=== PATIENT | female | born 1980 | race African-American/Black ===

== ENCOUNTER 2017-06-30 23:42 | Observation (INO) | payer MEDICARE ==
[2017-07-01 00:34] VITALS: BMI 31.4
[2017-07-01 00:48] LABS: URINE APPEARANCE CLEAR; URINE BILIRUBIN NEGATIVE (NEGATIVE); URINE BLOOD NEGATIVE (NEGATIVE); URINE COLOR LTYELLOW; URINE GLUCOSE (UA) NEGATIVE (NEGATIVE); URINE KETONE NEGATIVE (NEGATIVE); URINE LEUK ESTERASE TRACE (NEGATIVE); URINE NITRITE NEGATIVE (NEGATIVE); URINE PROTEIN NEGATIVE (NEGATIVE); URINE UROBILINOGEN 4.0 E.U/dl mg/dL (0.2-1.0)
[2017-07-01 00:49] LABS: HCG,QUALITATIVE URINE NEGATIVE
[2017-07-01 00:51] LABS: EPI CELLS RARE /HPF (FEW); URINE MUCUS RARE
[2017-07-01 01:01] LABS: BASO % 0.2 % (0-2.0); EOS % 0.4 % (0-4.5); MCHC 29.8 g/dl (32.0-36.0); MEAN CELL VOLUME 62.7 fl (80-96); MEAN PLT VOLUME 8.7 fl (7.5-11.1); MONO % 9.2 % (3.8-10.2); NEUT % 71.2 % (42.8-82.8); PLATELET COUNT 241 K/MM3 (134-434); RBC 3.18 M/mm3 (3.60-5.2); RDW 20.3 % (11.6-15.6); WHITE BLOOD COUNT 9.2 K/mm3 (4.0-10.0)
[2017-07-01 01:06] LABS: MCH 18.7 pg (25.7-33.7)
[2017-07-01 01:09] LABS: HEMOGLOBIN 5.9 GM/dL (10.7-15.3)
[2017-07-01 01:10] LABS: HEMATOCRIT 19.9 % (32.4-45.2)
[2017-07-01 01:25] LABS: ALBUMIN 3.2 g/dl (3.4-5.0); ANION GAP 11 (8-16); BILIRUBIN,TOTAL 0.4 mg/dL (0.2-1.0); BLOOD UREA NITROGEN 7 mg/dL (7-18); CALCIUM 8.3 mg/dL (8.5-10.1); CHLORIDE 106 mmol/L (98-107); CO2 23 mmol/L (21-32); CREATININE 0.8 mg/dL (0.55-1.02); GLUCOSE,RANDOM 101 mg/dL (74-106); POTASSIUM 3.4 mmol/L (3.5-5.1); SGOT/AST 12 U/L (15-37); SGPT/ALT 11 U/L (12-78); SODIUM 140 mmol/L (136-145); TOT PROT 7.2 g/dl (6.4-8.2)
[2017-07-01 01:26] LABS: ALK PHOS 58 U/L (45-117)
--- NOTE | 2017-07-01 01:27 | PDOC ---
History of Present Illness - General Chief Complaint: Urinary Problem Stated Complaint: ABD PAIN Time Seen by Provider: 07/01/17 00:26 - History of Present Illness Initial Comments: 07/01/17 01:22 "The patient is a 37 year old female with no significant PMH of who presents to the emergency department with lower abdominal pain since yesterday. The patient describes the lower abdominal pain as sharp and worse with movement. The patient notes her lower abdominal pain is exacerbated prior to urinating. The patient states she also had clear discharge yesterday but did not notice any associated odor, itchiness or rashes. The patient denies any history of UTIs. The patient states she is sexually active. LMP was on 06/16/17. Pt reports that she has very heavy periods, soaking through 1 pad every hour for the first 3 days. Endorses lightheaded when she exerts herself. Denies CP/ SOB. Also endorses cravings for ice chips. The patient denies chest pain, shortness of breath, headache and dizziness. Denies chills, nausea, vomit, diarrhea and constipation. Denies dysuria, frequency, urgency and hematuria. Denies BRBPR or dark tarry stools. Allergies: NKA Past surgical history: , tubal ligation Social history: No reported alcohol, drug or cigarette use. Past History - Past Medical History Allergies/Adverse Reactions: Allergies Allergy/AdvReac Type Severity Reaction Status Date / Time shellfish derived Allergy Verified 07/01/17 00:20 - Suicide/Smoking/Psychosocial Hx Smoking History: Never smoked Have you smoked in the past 12 months: No Information on smoking cessation initiated: No Hx Alcohol Use: No Drug/Substance Use Hx: No Review of Systems - Review of Systems Comments:: 07/01/17 01:24 "GENERAL/CONSTITUTIONAL: No fever or chills. + lightheadedness HEAD, EYES, EARS, NOSE AND THROAT: No change in vision. No ear pain or discharge. No sore throat. CARDIOVASCULAR: No chest pain or shortness of breath. RESPIRATORY: No cough, wheezing, or hemoptysis. GASTROINTESTINAL: + lower abdominal pain. No nausea, vomiting, diarrhea or constipation. GENITOURINARY: No dysuria, frequency, or change in urination. MUSCULOSKELETAL: No joint or muscle swelling or pain. No neck or back pain. SKIN: No rash NEUROLOGIC: No headache, vertigo, loss of consciousness, or change in strength/ sensation. ENDOCRINE: No increased thirst. No abnormal weight change. HEMATOLOGIC/LYMPHATIC: No anemia, easy bleeding, or history of blood clots. ALLERGIC/IMMUNOLOGIC: No hives or skin allergy." *Physical Exam - Vital Signs Last Vital Signs Temp Pulse Resp BP Pulse Ox 97.8 F 88 16 138/80 100 07/01/17 00:18 07/01/17 00:18 07/01/17 00:18 07/01/17 00:18 07/01/17 00:18 - Physical Exam Comments: 07/01/17 01:24 "GENERAL: Awake, alert, and fully oriented, in no acute distress HEAD: No signs of trauma EYES: PERRLA, EOMI, sclera anicteric, conjunctiva clear ENT: Auricles normal inspection, hearing grossly normal, nares patent, oropharynx clear without exudates. Moist mucosa NECK: Nontender, no stepoffs, Normal ROM, supple, no lymphadenopathy, JVD, or masses LUNGS: Breath sounds equal, clear to auscultation bilaterally. No wheezes, and no crackles HEART: Regular rate and rhythm, normal S1 and S2, no murmurs, rubs or gallops ABDOMEN: (+) suprapubic tenderness. normoactive bowel sounds. No guarding, no rebound. No masses EXTREMITIES: Normal range of motion, no edema. No clubbing or cyanosis. No cords, erythema, or tenderness NEUROLOGICAL: Cranial nerves II through XII intact. 5/5 strength and sensation in all extremities, Normal speech, normal gait, normal cerebellar function SKIN: Warm, Dry, normal turgor, no rashes or lesions noted." ED Treatment Course - LABORATORY CBC & Chemistry Diagram: 07/01/17 00:55 07/01/17 00:55 - ADDITIONAL ORDERS Additional order review: Laboratory Results 07/01/17 00:38 Urine Color Ltyellow Urine Appearance Clear Urine pH 6.0 Ur Specific [place] 1.012 Urine Protein Negative Urine Glucose (UA) Negative Urine Ketones Negative Urine Blood Negative Urine Nitrite Negative Urine Bilirubin Negative Urine Urobilinogen 4.0 e.u/dl H Ur Leukocyte Esterase Trace Urine WBC (Auto) 2 Urine RBC (Auto) 1 Ur Epithelial Cells Rare Urine Mucus Rare Urine HCG, Qual Negative 07/01/17 00:55 RBC 3.18 L D MCV 62.7 L MCHC 29.8 L RDW 20.3 H MPV 8.7 Neutrophils % 71.2 D Lymphocytes % 19.0 D Monocytes % 9.2 Eosinophils % 0.4 D Basophils % 0.2 Medical Decision Making - Medical Decision Making 07/01/17 01:25 37 F with suprapubic pain and occasional lightheadedness, as well as history of heavy periods. Pt with stable vitals but appears pale on exam, concerning for anemia. Exam notable for suprapubic tenderness. Will evaluate for UTI. Will also obtain TVUS to evaluate for uterine fibroids given h/o menorrhagia. - Labs, coags, T&S - UA, UCx - TVUS 07/01/17 01:34 Pt found to have Hb 5.9 - spoke with pt, who does not know what her baseline Hb is. States that she has not had blood tests in several years. Denies any vaginal bleeding currently. Denies BRBPR or dark stools. Will transfuse 1u PRBC at this time and admit. TVUS pending. 07/01/17 01:[address] Balbuena, obs *DC/Admit/Observation/Transfer Diagnosis at time of Disposition: Anemia - Discharge Dispostion Admit: Yes - Referrals - Patient Instructions - Post Discharge Activity - Attestations Physician Attestion: 07/01/17 01:45 I, Dr. Shelton Macedo MD, attest that this document has been prepared under my direction and personally reviewed by me in its entirety. I further attest, that it accurately reflects all work, treatment, procedures and medical decision -making performed by me.
--- NOTE | 2017-07-01 02:24 | HP ---
CHIEF COMPLAINT: abdominal pain PCP: HISTORY OF PRESENT ILLNESS: 37 yo F with no significant PMHx who presents to the ED with one day history of lower abdominal pain. The patient describes the constant non-radiating lower abdominal pain as sharp. Aggravated by movement. The patient notes her lower abdominal pain is exacerbated prior to urinating. No alleviating factors. The patient states she also had clear discharge yesterday but did not notice any associated odor, itchiness or rashes. The patient denies any history of UTIs. The patient states she is sexually active. LMP was on 06/16/17. Pt reports that she has very heavy periods, soaking through 1 pad every hour for the first 3 days. Endorses lightheaded when she exerts herself. Denies CP/SOB. Also endorses cravings for ice chips.The patient denies chest pain, shortness of breath, headache and dizziness. Denies chills, nausea, vomit, diarrhea and constipation.Denies dysuria, frequency, urgency and hematuria. Denies BRBPR or dark tarry stools. ER course was notable for: (1)Hgb 5.9 (2)1 unit of PRBC ordered. (3) Recent Travel: Denies PAST MEDICAL HISTORY: PAST SURGICAL HISTORY: x 3 and tubal ligation. Social History: Smoking:never Alcohol:denies Drugs: denies Family History: Allergies shellfish derived Allergy (Verified 07/01/17 00:20) HOME MEDICATIONS: REVIEW OF SYSTEMS CONSTITUTIONAL:+fever, chills, diaphoresis, generalized weakness Absent: malaise, loss of appetite, weight change HEENT: Absent: rhinorrhea, nasal congestion, throat pain, throat swelling, difficulty swallowing, mouth swelling, ear pain, eye pain, visual changes CARDIOVASCULAR: Absent: chest pain, syncope, palpitations, irregular heart rate, lightheadedness , peripheral edema RESPIRATORY: Absent: cough, shortness of breath, dyspnea with exertion, orthopnea, wheezing, stridor, hemoptysis GASTROINTESTINAL:+abdominal pain Absent: , abdominal distension, nausea, vomiting, diarrhea, constipation, melena , hematochezia GENITOURINARY: Absent: dysuria, frequency, urgency, hesitancy, hematuria, flank pain, genital pain MUSCULOSKELETAL: Absent: myalgia, arthralgia, joint swelling, back pain, neck pain SKIN: Absent: rash, itching, pallor HEMATOLOGIC/IMMUNOLOGIC: Absent: easy bleeding, easy bruising, lymphadenopathy, frequent infections ENDOCRINE: Absent: unexplained weight gain, unexplained weight loss, heat intolerance, cold intolerance NEUROLOGIC: Absent: headache, focal weakness or paresthesias, dizziness, unsteady gait, seizure, mental status changes, bladder or bowel incontinence PSYCHIATRIC: Absent: anxiety, depression, suicidal or homicidal ideation, hallucinations. PHYSICAL EXAMINATION Vital Signs - 24 hr 07/01/17 00:18 Temperature 97.8 F Pulse Rate 88 Respiratory 16 Rate Blood Pressure 138/80 O2 Sat by Pulse 100 Oximetry (%) GENERAL: AAOx3, NAD HEAD: NC/AT EYES: PERRLA,EOMI, pale sclera , conjunctiva clear. No lid lag. EARS, NOSE, THROAT: Ears normal, nares patent, oropharynx clear without exudates. Moist mucous membranes. NECK: supple , no jvd , large scar from previous trauma. LUNGS: CTAB, No wheezes, and no rales. HEART:RRR,NL S1S2 w/o murmur, rub or gallop. ABDOMEN: Soft, diffuse tenderness > lower abdomen, NL BS, no masses. MUSCULOSKELETAL: Normal range of motion at all joints. No bony deformities or tenderness. No CVA tenderness. UPPER EXTREMITIES: 2+ pulses, warm, well-perfused. No cyanosis. No clubbing. No peripheral edema. LOWER EXTREMITIES: 2+ pulses, warm, well-perfused. No calf tenderness. No peripheral edema. NEUROLOGICAL: Cranial nerves II-XII intact. Normal speech. gait not observed. PSYCHIATRIC: Cooperative. Good eye contact. Appropriate mood and affect. Laboratory Results - last 24 hr 07/01/17 07/01/17 07/01/17 00:38 00:55 00:55 WBC 9.2 D RBC 3.18 L D Hgb 5.9 L* D Hct 19.9 L D MCV 62.7 L MCH 18.7 L MCHC 29.8 L RDW 20.3 H Plt Count 241 MPV 8.7 Neutrophils % 71.2 D Lymphocytes % 19.0 D Monocytes % 9.2 Eosinophils % 0.4 D Basophils % 0.2 Sodium 140 Potassium 3.4 L Chloride 106 Carbon Dioxide 23 Anion Gap 11 BUN 7 Creatinine 0.8 Creat Clearance w eGFR > 60 Random Glucose 101 Calcium 8.3 L Total Bilirubin 0.4 D AST 12 L ALT 11 L Alkaline Phosphatase 58 Total Protein 7.2 Albumin 3.2 L Urine Color Ltyellow Urine Appearance Clear Urine pH 6.0 Ur Specific [place] 1.012 Urine Protein Negative Urine Glucose (UA) Negative Urine Ketones Negative Urine Blood Negative Urine Nitrite Negative Urine Bilirubin Negative Urine Urobilinogen 4.0 e.u/dl H Ur Leukocyte Esterase Trace Urine WBC (Auto) 2 Urine RBC (Auto) 1 Ur Epithelial Cells Rare Urine Mucus Rare Urine HCG, Qual Negative Crossmatch 07/01/17 02:03 WBC RBC Hgb Hct MCV MCH MCHC RDW Plt Count MPV Neutrophils % Lymphocytes % Monocytes % Eosinophils % Basophils % Sodium Potassium Chloride Carbon Dioxide Anion Gap BUN Creatinine Creat Clearance w eGFR Random Glucose Calcium Total Bilirubin AST ALT Alkaline Phosphatase Total Protein Albumin Urine Color Urine Appearance Urine pH Ur Specific [place] Urine Protein Urine Glucose (UA) Urine Ketones Urine Blood Urine Nitrite Urine Bilirubin Urine Urobilinogen Ur Leukocyte Esterase Urine WBC (Auto) Urine RBC (Auto) Ur Epithelial Cells Urine Mucus Urine HCG, Qual Crossmatch See Detail ASSESSMENT/PLAN: 37 yo F with no significant PMHx who presents to the ED with one day history of lower abdominal pain placed on observation for acute blood loss anemia. Problem List - Problem (1) Anemia Assessment/Plan: most likely 2/2 heavy dysmenorrhagia-chronic * 1 unit of PRBC's ordered * repeat CBC in AM * Monitor for signs of anaphylaxis. * Will start Iron supplementation with Vit. C * Possibly start OCP Visit type - Emergency Visit Emergency Visit: Yes ED Registration Date: 07/01/17 Care time: The patient presented to the Emergency Department on the above date and was hospitalized for further evaluation of their emergent condition. - New Patient This patient is new to me today: Yes Date on this admission: 07/01/17 - Critical Care Critical Care patient: No Hospitalist Screening - Colonoscopy Questionnaire Colonoscopy Questionnaire: Colonoscopy Questionnaire - Patient: 50 - 75 years old and never had a screening colonoscopy: No History of colon or rectal polyps, or CA: No History of IBD, Crohn's disease or UC: No History of abdominal radiation therapy as a child: No - Relative: 1 with colon or rectal CA, or polyps at age 60 or younger: No Colon or rectal CA diagnosed at age 45 or younger: No Multiple relatives with colon or rectal CA: No - Outcome: Screening Result: Negative Screen
[2017-07-01 02:33] LABS: INR 1.31 (0.82-1.09); PROTHROMBIN TIME (PATIENT) 14.8 SEC (9.98-11.88)
[2017-07-01 02:36] LABS: ACTIVATED PTT 25.2 SECONDS (26.9-34.4)
--- NOTE | 2017-07-01 03:04 | PN ---
Teaching Attending Note Name of Resident: Ronnell Lala ATTENDING PHYSICIAN STATEMENT I saw and evaluated the patient. Chart, data reviewed. I reviewed the resident's note and discussed the case with the resident. I agree with the resident's findings and plan as documented. SUBJECTIVE: 37 yo F with no significant PMHx presented with one day of suprapubic pain. She reports regular menses about every 28 days however they are very heavy and last menses 06/16, she required several pads. test was negative. No nausea or vomiting. Some lightheadness. She denied any bleeding from other body sites. No fainting episodes. OBJECTIVE: Last Vital Signs Temp Pulse Resp BP Pulse Ox 98.9 F 78 16 146/91 100 07/01/17 04:00 07/01/17 04:00 07/01/17 04:00 07/01/17 04:00 07/01/17 00:18 general -nad, aaox3 heent- pale sclera neck -scars cv -s1+s2+ RRR chest- cta b/l abdomen -suprapubic tenderness on palpation ext- no pedal edema Abnormal Lab Results 07/01/17 07/01/17 07/01/17 00:38 00:55 00:55 RBC 3.18 L D Hgb 5.9 L* D Hct 19.9 L D MCV 62.7 L MCH 18.7 L MCHC 29.8 L RDW 20.3 H PT with INR INR PTT (Actin FS) Potassium 3.4 L Calcium 8.3 L AST 12 L ALT 11 L Albumin 3.2 L Urine Urobilinogen 4.0 e.u/dl H Crossmatch 07/01/17 07/01/17 02:03 02:03 RBC Hgb Hct MCV MCH MCHC RDW PT with INR 14.80 H INR 1.31 H PTT (Actin FS) 25.2 L Potassium Calcium AST ALT Albumin Urine Urobilinogen Crossmatch See Detail Tansvaginal U/S- no fibroids or lesions noted ASSESSMENT AND PLAN: #Menorrhagia with subsequent chronic microcytic anemia in otherwise healthy 37yo woman with pelvic cramps. -observation -obgyn consult -ibuprofen 800mg q8 hrs PO PRN -transfuse 2 units PRBC for goal hgb >7 -consider to start OCPs -ferrous sulfate 325mg bid with vitamin C diet- regular #DVT ppx - SCDs
[2017-07-01] MEDS ORDERED: ACETAMINOPHEN 325 MG TABLET (FP) PO ONE (07:03)
[2017-07-01] MEDS ORDERED: ACETAMINOPHEN 325 MG TABLET (FP) PO PRN (08:40)
[2017-07-01] MEDS ORDERED: FERROUS SO4 325 MG TABLET (FP) PO ONE (08:43)
[2017-07-01 15:31] LABS: HEMATOCRIT 25.3 % (32.4-45.2); HEMOGLOBIN 7.7 GM/dL (10.7-15.3); MCH 20.5 pg (25.7-33.7); MCHC 30.3 g/dl (32.0-36.0); MEAN CELL VOLUME 67.8 fl (80-96); MEAN PLT VOLUME 9.2 fl (7.5-11.1); PLATELET COUNT 229 K/MM3 (134-434); RBC 3.74 M/mm3 (3.60-5.2); RDW 24.1 % (11.6-15.6)
--- NOTE | 2017-07-01 16:03 | HOSP ---
Subjective - Review of Symptoms Subjective: pt c/o NICOLAS this AM which resolved after 2nd unit of blood. currently asymptomatic. denies CP, SOB< fever, chills, n/V/c/D, vaginal bleeding, spotting Last Vital Signs Temp Pulse Resp BP Pulse Ox 98.4 F 67 20 136/75 96 07/01/17 14:57 07/01/17 14:57 07/01/17 14:57 07/01/17 14:57 07/01/17 10:00 General NAD CV S1 S2 RRR no murmrur/rub/gallop Lungs CTA B/L no wheezing/rals/rhonchi Abdomen soft NT/ND obese Extremities no pedal edema A/P 37yo F with no PMH presented with suprapubic pain 1. SYmptomatic anemia- s/p 2 untis PRBC without appropriate response however symptoms have now resolved. TVUS showing adenomyosis as cause of menorrhgia. will repeat Hgb in the evening and transfuse more blood if Hgb <7. if trending down consider LEAD MASSAGE THERAPIST eval as pt may benfit from OCP vs endomtrial ablation. started on iron supplements due to elevated RDW highly suggestive of iron defiency. unable to check iron studies due to recent blood transfusion. discussed in detail with pt plan which she verbalized understanding and agreement with plan 2. elevated BP- educated need for lifesytle changes. will need to see PMD and establish care to start BP meds 3. Obesity- BMI 31.5. educated lifestyle changes wiht diet and exercise. goal of 1lb/week. 4. d/c planning for the AM pending repeat Hgb Physical Examination Vital Signs: Vital Signs Temperature 98.4 F 07/01/17 14:57 Pulse Rate 67 07/01/17 14:57 Respiratory Rate 20 07/01/17 14:57 Blood Pressure 136/75 07/01/17 14:57 O2 Sat by Pulse Oximetry (%) 96 07/01/17 10:00 Labs: CBC, BMP 07/01/17 14:50
[2017-07-01 16:04] LABS: ALBUMIN 3.2 g/dl (3.4-5.0); ALK PHOS 58 U/L (45-117); ANION GAP 5 (8-16); BILIRUBIN,TOTAL 0.5 mg/dL (0.2-1.0); BLOOD UREA NITROGEN 7 mg/dL (7-18); CALCIUM 7.9 mg/dL (8.5-10.1); CHLORIDE 107 mmol/L (98-107); CO2 28 mmol/L (21-32); CREATININE 0.8 mg/dL (0.55-1.02); GLUCOSE,RANDOM 81 mg/dL (74-106); POTASSIUM 3.8 mmol/L (3.5-5.1); SGOT/AST 12 U/L (15-37); SGPT/ALT 12 U/L (12-78); SODIUM 140 mmol/L (136-145)
[2017-07-01] MEDS: FERROUS SO4 325 MG TABLET (FP) PO SCH (16:58)
[2017-07-01 21:26] LABS: HEMATOCRIT 24.9 % (32.4-45.2); HEMOGLOBIN 7.4 GM/dL (10.7-15.3); MCH 20.2 pg (25.7-33.7); MCHC 29.8 g/dl (32.0-36.0); MEAN CELL VOLUME 67.6 fl (80-96); MEAN PLT VOLUME 9.1 fl (7.5-11.1); PLATELET COUNT 235 K/MM3 (134-434); RBC 3.68 M/mm3 (3.60-5.2); RDW 23.3 % (11.6-15.6)
[2017-07-02 08:30] LABS: HEMATOCRIT 25.9 % (32.4-45.2); HEMOGLOBIN 7.8 GM/dL (10.7-15.3); MCH 20.2 pg (25.7-33.7); MCHC 30.2 g/dl (32.0-36.0); MEAN PLT VOLUME 9.3 fl (7.5-11.1); PLATELET COUNT 229 K/MM3 (134-434); RBC 3.87 M/mm3 (3.60-5.2); RDW 23.8 % (11.6-15.6); WHITE BLOOD COUNT 6.6 K/mm3 (4.0-10.0)
--- NOTE | 2017-07-02 09:42 | DS ---
Physical Exam: SUBJECTIVE: Patient seen and examined. NICOLAS moslty resolved. admits to [facility]. deneis Cp, SOB, fever, chills, dizzyness, vaginal bleeding/spotting. OBJECTIVE: Vital Signs Period Temp Pulse Resp BP Sys/Jose Pulse Ox Last 24 Hr 97.2 F-99.0 F 64-75 18-20 136-161/74-100 96-96 PHYSICAL EXAM GENERAL: The patient is awake, alert, and fully oriented, in no acute distress. HEAD: Normal with no signs of trauma. EYES: PERRL, extraocular movements intact, sclera anicteric, conjunctiva clear. ENT: Ears normal, nares patent, oropharynx clear without exudates, moist mucous membranes. NECK: Trachea midline, full range of motion, supple. LUNGS: Breath sounds equal, clear to auscultation bilaterally, no wheezes, no crackles, no accessory muscle use. HEART: Regular rate and rhythm, S1, S2 without murmur, rub or gallop. ABDOMEN: Soft, nontender, nondistended, normoactive bowel sounds, no guarding, no rebound, no hepatosplenomegaly, no masses.obese EXTREMITIES: 2+ pulses, warm, well-perfused, no edema. NEUROLOGICAL: Cranial nerves II through XII grossly intact. Normal speech, gait not observed. PSYCH: Normal mood, normal affect. SKIN: Warm, dry, normal turgor, no rashes or lesions noted. LABS Laboratory Results - last 24 hr 07/01/17 07/01/17 07/01/17 02:03 14:50 14:50 WBC 8.0 RBC 3.74 Hgb 7.7 L D Hct 25.3 L D MCV 67.8 L D MCH 20.5 L MCHC 30.3 L RDW 24.1 H D Plt Count 229 MPV 9.2 Sodium 140 Potassium 3.8 Chloride 107 Carbon Dioxide 28 Anion Gap 5 L BUN 7 Creatinine 0.8 Creat Clearance w eGFR > 60 Random Glucose 81 Calcium 7.9 L Total Bilirubin 0.5 D AST 12 L ALT 12 Alkaline Phosphatase 58 Total Protein 7.0 Albumin 3.2 L Blood Type O POSITIVE Antibody Screen Negative Crossmatch See Detail 07/01/17 07/02/17 21:00 06:48 WBC 7.0 6.6 RBC 3.68 3.87 Hgb 7.4 L 7.8 L Hct 24.9 L 25.9 L MCV 67.6 L 67.0 L MCH 20.2 L 20.2 L MCHC 29.8 L 30.2 L RDW 23.3 H 23.8 H Plt Count 235 229 MPV 9.1 9.3 Sodium Potassium Chloride Carbon Dioxide Anion Gap BUN Creatinine Creat Clearance w eGFR Random Glucose Calcium Total Bilirubin AST ALT Alkaline Phosphatase Total Protein Albumin Blood Type Antibody Screen Crossmatch HOSPITAL COURSE: Date of Admission:07/01/17 Date of Discharge: 07/02/17 Admitting diagnosis: Symptomatic anemia, iron def anemia, obesity, adenomyosis Pre hospital course 37 yo F with no significant PMHx who presents to the ED with one day history of lower abdominal pain. The patient describes the constant non-radiating lower abdominal pain as sharp. Aggravated by movement. The patient notes her lower abdominal pain is exacerbated prior to urinating. No alleviating factors. The patient states she also had clear discharge yesterday but did not notice any associated odor, itchiness or rashes. The patient denies any history of UTIs. The patient states she is sexually active. LMP was on 06/16/17. Pt reports that she has very heavy periods, soaking through 1 pad every hour for the first 3 days. Endorses lightheaded when she exerts herself. Denies CP/SOB. Also endorses cravings for ice chips.The patient denies chest pain, shortness of breath, headache and dizziness. Denies chills, nausea, vomit, diarrhea and constipation.Denies dysuria, frequency, urgency and hematuria. Denies BRBPR or dark tarry stools. Subsequent hospital course Medicine observation. received 2 units PRBC and montiored. Hgb remained stable. started on oral iron supplements in light of elevated RDW and high suspicion of iron def (panel not done due to already receiving blood). offered IV iron which pt declined. TVUS showin adenomyosis. symptoms resolved. 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 lengthy counseling on dietary changes, medication compliance and follow up Minutes to complete discharge: 40 Discharge Summary Reason For Visit: ANEMIA Current Active Problems Adenomyosis (Acute) Anemia (Acute) Obese (Acute) Condition: Improved - Instructions Diet, Activity, Other Instructions: You were admitted to the hospital because you found to be very anemic requiring 2 units of blood to be transfused. This is likely due to your heavy menses and iron deficiency On ultrasound you were found to adenomyosis. Which is condition that causes you to have heavy menses It is recommended for you to see both a primary care doctor and help desk agent. Information on 2 doctors you could see in this area is provided. It is recommended that you make appointments to see them shortly. You should have your blood checked to ensure your blood count is stable and that you dont require more blood. You were also seen to have elevated blood pressure. Medications are not needed at this time but it is recommended that you decrease your salt intake to lower your blood pressure naturally. If it remains elevated you may require medications for this. You were started on iron supplements. take this twice a day with meals. Side effects include constipation and your stool becoming black Start an excercise program, 3 times a week for 30 minutes. you should do a moderate intensity and slowly increase your intensity. Your goal should be to loose 1 pound per week If your symptoms return or you become short of breath, dizzy and feel like you may faint return to the ER. Referrals: Eros Barone MD [Staff Physician] - (Primary Care- please see in 1 week for BP and Hgb check) Shaan Hernandez MD [Staff Physician] - (Gyencology) - Home Medications Comprehensive Discharge Medication List: Ambulatory Orders Ferrous Sulfate [Feosol] 325 mg PO BIDWM #[id number] ud 07/02/17 This patient is new to me today: No Emergency Visit: Yes ED Registration Date: 07/01/17 Care time: The patient presented to the Emergency Department on the above date and was hospitalized for further evaluation of their emergent condition. Critical Care patient: No - Discharge Referral Referred to [facility] Med P.C.: No
[2017-07-02] MEDS: FERROUS SO4 325 MG TABLET (FP) PO SCH (10:13)
[2017-07-02] MEDS ORDERED: IRON SUCROSE INJECTION 200 MG in SODIUM CHLORIDE 90 ML IVPB ONE (10:44)
[2017-07-02] MEDS ORDERED: amLODIPine BESYLATE 5 MG TABLET (FP) PO ONE (10:44)
[2017-07-02 14:37] VITALS: TEMP 98
[2017-07-02 14:38] VITALS: BP 150/79; PULSE 63
== END 2017-07-02 14:12 | disposition home or self-care (01) ==
LOC: JER 23:42 → JERBED 07-01 01:45 → UNDOADMOB 07-01 01:53 → JERBED 07-01 01:53 → J8W 07-01 03:47
PROVIDERS: ADMIT Internal Medicine; ATTEND Internal Medicine
PROC: 30233N1 Transfusion of Nonautologous Red Blood Cells into Peripheral Vein, Percutaneous Approach (ICD-10-PCS; principal; 2017-07-01)
PROC: 3E033GC Introduction of Other Therapeutic Substance into Peripheral Vein, Percutaneous Approach (ICD-10-PCS; 2017-07-01)
DX: D50.9 Iron deficiency anemia, unspecified (principal); N92.0 Excessive and frequent menstruation with regular cycle; N80.0 Endometriosis of uterus; E66.9 Obesity, unspecified; Z68.31 Body mass index [BMI] 31.0-31.9, adult; Z91.013 Allergy to seafood
CPT/HCPCS: 36415; 36430; 36511; 76830-TC; 80053; 81003; 81015; 84703; 85025; 85027; 85610; 85730; 86850; 86900; 86901; 86922; 87086; 96374; 99284-25; G0378; J1756; P9038; P9058

== ENCOUNTER 2019-05-18 01:29 | Emergency (ER) | payer SELFPAY ==
[2019-05-18 01:58] VITALS: TEMP 98.6; BMI 30.7
--- NOTE | 2019-05-18 02:14 | PDOC ---
History of Present Illness - General Chief Complaint: Vaginal Bleeding Stated Complaint: VAGINAL BLEEDING, BP PROBLEM, DIZZINESS - History of Present Illness Initial Comments: 05/18/19 03:19 38 y/o F with a hx of adenomyosis on tranxemic acid, presents to the ER with vaginal bleeding. Pt. is on regular menstrual cycle which has lasted longer, and is heavier than usual. She was prescribed Tranexamic acid by OB to take during her period but has now taken it more than the recommended period since she has bled for more than 4 days. no headache, urinary symtpoms or dizziness 05/18/19 04:42 06/01/19 00:54 Past History - Past Medical History Allergies/Adverse Reactions: Allergies Allergy/AdvReac Type Severity Reaction Status Date / Time citric acid Allergy Verified 05/18/19 01:55 shellfish derived Allergy Verified 05/18/19 01:55 CHOCOLATE Allergy Uncoded 05/18/19 01:55 Home Medications: Ambulatory Orders Ferrous Sulfate [Feosol] 325 mg PO BIDWM #60 ud 07/02/17 Valsartan [Diovan] 40 mg PO DAILY #30 tablet 05/18/19 - Psycho Social/Smoking Cessation Hx Smoking History: Never smoked Have you smoked in the past 12 months: No Information on smoking cessation initiated: No Hx Alcohol Use: No Drug/Substance Use Hx: No Review of Systems - Review of Systems Constitutional: No: Chills, Fever HEENTM: No: Eye Pain, Blurred Vision Respiratory: No: Cough, Shortness of Breath Cardiac (ROS): No: Chest Pain, Palpitations ABD/GI: No: Diarrhea, Vomiting, Tarry Stools : No: Burning, Dysuria Musculoskeletal: No: Back Pain, Joint Pain Integumentary: No: Bruising, Change in Color Neurological: No: Headache, Numbness *Physical Exam - Vital Signs Last Vital Signs Temp Pulse Resp BP Pulse Ox 98.6 F 72 20 168/113 H 98 05/18/19 01:38 05/18/19 01:38 05/18/19 01:38 05/18/19 01:38 05/18/19 01:38 - Physical Exam 05/18/19 04:41 GENERAL: Awake, alert, and fully oriented, in no acute distress HEAD: No signs of trauma, normocephalic, atraumatic EYES: PERRLA, EOMI, sclera anicteric, conjunctiva clear ENT: Auricles normal inspection, hearing grossly normal, nares patent, oropharynx clear without exudates. Moist mucosa NECK: Normal ROM, supple, no lymphadenopathy, JVD, or masses LUNGS: No distress, speaks full sentences, clear to auscultation bilaterally HEART: Regular rate and rhythm, normal S1 and S2, no murmurs, rubs or gallops, peripheral pulses normal and equal bilaterally. ABDOMEN: Soft, nontender, normoactive bowel sounds. No guarding, no rebound. No masses Pelvic: no CMT, no adnexal tenderness. blood in the vaginal vault with moderate pooling. cervical os not visualized EXTREMITIES : Normal inspection, Normal range of motion, no edema. No clubbing or cyanosis NEUROLOGICAL: Cranial nerves II through XII grossly intact. Normal speech, normal gait, no focal sensorimotor deficits SKIN: Warm, Dry, normal turgor, no rashes or lesions noted 06/01/19 00:55 ED Treatment Course - LABORATORY CBC & Chemistry Diagram: 05/18/19 03:00 05/18/19 03:00 Medical Decision Making - Medical Decision Making 05/18/19 04:46 Pt's hemoglobin wnl manager document control OB paged for consult to find out if patient can be started on progesterone here in anticipation of her appointment? on next Monday. as well as other recs. labs unremarkable, pt stable for discharge home after discussion with Dr. Craig and should follow up with primary special educator on Monday. Pt says she will follow up with her own HYDROGENATION OPERATOR 06/01/19 00:53 Discharge - Discharge Information Problems reviewed: Yes Clinical Impression/Diagnosis: Vaginal bleeding Condition: Stable Disposition: HOME - Admission No - Additional Discharge Information Prescriptions: Valsartan [Diovan] 40 mg PO DAILY #30 tablet - Follow up/Referral Referrals: Flakito Caldwell FNP [Primary Care Provider] - - Patient Discharge Instructions Patient Printed Discharge Instructions: DI for Vaginal Bleeding Additional Instructions: Please return to the emergency department with any new or worsening symptoms or concerns. Please follow up with your hurl shaker and/or primary care physician within 72 hours. - Post Discharge Activity
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
[2019-05-18 03:59] LABS: BASO % 0.6 % (0-2.0); EOS % 3.7 % (0-4.5); HEMATOCRIT 38.7 % (32.4-45.2); HEMOGLOBIN 12.6 GM/dL (10.7-15.3); LYMPH % 44.1 % (8-40); MCHC 32.6 g/dl (32.0-36.0); MEAN PLT VOLUME 9.7 fl (7.5-11.1); NEUT % 45.6 % (42.8-82.8); PLATELET COUNT 210 K/MM3 (134-434); RBC 4.07 M/mm3 (3.60-5.2); RDW 14.4 % (11.6-15.6); WHITE BLOOD COUNT 6.1 K/mm3 (4.0-10.0)
[2019-05-18 04:00] LABS: URINE APPEARANCE CLEAR; URINE BILIRUBIN NEGATIVE (NEGATIVE); URINE COLOR YELLOW; URINE GLUCOSE (UA) NEGATIVE (NEGATIVE); URINE KETONE NEGATIVE (NEGATIVE); URINE LEUK ESTERASE NEGATIVE (NEGATIVE); URINE NITRITE NEGATIVE (NEGATIVE); URINE PROTEIN NEGATIVE (NEGATIVE); URINE UROBILINOGEN 0.2 mg/dL (0.2-1.0)
[2019-05-18 04:04] LABS: INR 0.97 (0.83-1.09); PROTHROMBIN TIME (PATIENT) 11.5 SEC (9.7-13.0)
[2019-05-18 04:07] LABS: ACTIVATED PTT 35.2 SECONDS (25.2-36.5)
[2019-05-18 04:44] LABS: ALBUMIN 3.8 g/dl (3.4-5.0); BILIRUBIN,TOTAL 0.4 mg/dL (0.2-1); BLOOD UREA NITROGEN 18.6 mg/dL (7-18); POTASSIUM 3.9 mmol/L (3.5-5.1); TOT PROT 7.6 g/dl (6.4-8.2)
[2019-05-18] MEDS ORDERED: VALSARTAN 40 MG TABLET (FP) PO ONE (05:23)
[2019-05-18] MEDS ORDERED: VALSARTAN 80 MG TABLET (UD) ONE (05:31)
[2019-05-18 06:13] VITALS: BP 166/108; PULSE 67
== END 2019-05-18 06:16 | disposition home or self-care (01) ==
LOC: JER 01:29
DX: N93.8 Other specified abnormal uterine and vaginal bleeding (principal); Z86.2 Personal history of diseases of the blood and blood-forming organs and certain disorders involving the immune mechanism; R03.0 Elevated blood-pressure reading, without diagnosis of hypertension; Z91.018 Allergy to other foods; Z91.013 Allergy to seafood
CPT/HCPCS: 36415; 80053; 81003; 84703; 85025; 85610; 85730; 86850; 86900; 86901; 99282-25